=== PATIENT | female | born 1965 | race Caucasian/White ===

== ENCOUNTER 2017-10-22 04:14 | Emergency (ER) | payer SELFPAY ==
[~2017-10-22] VITALS: Ht 165.1 cm; Wt 70.0 kg
[2017-10-22 04:25] VITALS: BP 166/93; PULSE 68; RESP 26; TEMP 98.8; O2SAT 99
[2017-10-22 04:28] VITALS: BP_SYST 166; BP_SYST 168; BP_DIAS 89; BP_DIAS 93; RESP 20
[2017-10-22] MEDS ORDERED: diphenhydrAMINE HCL 50 MG/ML VIAL IV PUSH ONE (04:30)
[2017-10-22] MEDS ORDERED: SODIUM CHLOR 0.9% 1000 ML INJ 1,000 ML IV ONE (04:30)
[2017-10-22] MEDS ORDERED: PROCHLORPERAZINE INJ 10 MG/2 ML VIAL IV PUSH ONE (04:30)
--- NOTE | 2017-10-22 04:38 | PD ---
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 Patient was offered the director speech language but declined. History is a little bit limited. Patient is a little bit dramatic and not forthcoming with much history. Initially complaints were of right arm pain that started yesterday. Patient states that she's been sick for his long as she can remember with arm pain and abdominal pain. She's had multiple surgeries but she cannot say why. Surgical scars on her abdomen or suggestive of appendectomy and hysterectomy. States she has headaches regularly and has been having headache recently, again cannot clarify any duration. She also states that she has severe dizziness and keeps her eyes closed throughout the exam. She states the dizziness and abdominal pain seemed to be the most prominent complaints. No diarrhea. No urinary symptoms. No chest pain. No recent injuries. History Past Medical History Medical History: Denies Significant Hx Tetanus Vaccination: Unknown Influenza Vaccination: No Social History Alcohol Use: No Tobacco Use: No Allergies-Medications (Allergen,Severity, Reaction): Coded Allergies: No Known Drug Allergies (Verified Allergy, Unknown, 10/22/17) Reported Meds & Prescriptions Reported Meds & Active Scripts Active No Active Prescriptions or Reported Medications Review of Systems ROS Limitations: Clinical Condition Physical Exam Narrative GENERAL: 52 year-old woman, lying on the bed, eyes closed, low intensity moaning pretty much continuously SKIN: Focused skin assessment warm/dry. HEAD: Atraumatic. Normocephalic. EYES: Pupils equal and round. No scleral icterus. No injection or drainage. ENT: No nasal bleeding or discharge. Mucous membranes pink and moist. NECK: Appears to move neck freely without evidence of meningismus. CARDIOVASCULAR: Regular rate and rhythm. No murmur appreciated. RESPIRATORY: Lungs are clear to auscultation. No respiratory distress. GASTROINTESTINAL: Abdomen soft, non-tender, nondistended. Hepatic and splenic margins not palpable. MUSCULOSKELETAL: No obvious deformities. No clubbing. No cyanosis. No edema. NEUROLOGICAL: Awake but keeps her eyes closed. She is really not cooperative much exam. I don't see any obvious nystagmus and her EOMs are full. She has no facial asymmetry. Weak effort with motor examination but no obvious focal deficits. She displays dysmetric in both upper extremities but again unclear if this is due to patient's ability to focus on the exam or is a finding. She is able to do [id number] bilaterally without deficits. Sensations intact throughout. PSYCHIATRIC: Appropriate mood and affect; insight and judgment normal. Data Data Last Documented VS Vital Signs Date Time Temp Pulse Resp B/P (MAP) Pulse Ox O2 Delivery O2 Flow Rate FiO2 10/22/17 04:28 82 20 168/89 (115) 75 166/93 (117) 10/22/17 04:25 98.8 99 Orders Orders Iv Access Insert/Monitor (10/22/17 04:27) Complete Blood Count With Diff (10/22/17 04:27) Comprehensive Metabolic Panel (10/22/17 04:27) Lipase (10/22/17 04:27) Sodium Chlor 0.9% 1000 Ml Inj (Ns 1000 M (10/22/17 04:30) Prochlorperazine Inj (Compazine Inj) (10/22/17 04:30) Diphenhydramine Inj (Benadryl Inj) (10/22/17 04:30) Labs Laboratory Tests Test 10/22/17 04:20 White Blood Count 11.8 TH/MM3 Red Blood Count 4.23 MIL/MM3 Hemoglobin 12.4 GM/DL Hematocrit 38.1 % Mean Corpuscular Volume 89.9 FL Mean Corpuscular Hemoglobin 29.4 PG Mean Corpuscular Hemoglobin Concent 32.7 % Red Cell Distribution Width 13.0 % Platelet Count 266 TH/MM3 Mean Platelet Volume 9.2 FL Neutrophils (%) (Auto) 43.4 % Lymphocytes (%) (Auto) 47.6 % Monocytes (%) (Auto) 5.6 % Eosinophils (%) (Auto) 2.4 % Basophils (%) (Auto) 1.0 % Neutrophils # (Auto) 5.1 TH/MM3 Lymphocytes # (Auto) 5.6 TH/MM3 Monocytes # (Auto) 0.7 TH/MM3 Eosinophils # (Auto) 0.3 TH/MM3 Basophils # (Auto) 0.1 TH/MM3 CBC Comment AUTO DIFF Differential Total Cells Counted 100 Neutrophils % (Manual) 39 % Lymphocytes % 55 % Monocytes % 5 % Basophils % 1 % Neutrophils # (Manual) 4.6 TH/MM3 Differential Comment AUTO DIFF CONFIRMED Platelet Estimate NORMAL Platelet Morphology Comment NORMAL Red Cell Morphology Comment NORMAL Blood Urea Nitrogen 23 MG/DL Creatinine 0.92 MG/DL Random Glucose 106 MG/DL Total Protein 7.7 GM/DL Albumin 3.4 GM/DL Calcium Level 9.3 MG/DL Alkaline Phosphatase 131 U/L Aspartate Amino Transf (AST/SGOT) 26 U/L Alanine Aminotransferase (ALT/SGPT) 18 U/L Total Bilirubin 0.2 MG/DL Sodium Level 140 MEQ/L Potassium Level 3.9 MEQ/L Chloride Level 106 MEQ/L Carbon Dioxide Level 26.6 MEQ/L Anion Gap 7 MEQ/L Estimat Glomerular Filtration Rate 64 ML/MIN Lipase 169 U/L [facility] Medical Decision Making Medical Screen Exam Complete: Yes Emergency Medical Condition: Yes Interpretation(s) My review of EKG: Normal sinus rhythm at a rate of 84, normal axis, normal intervals, little bit of artifact in the baseline due to tremulousness. LABS: CBC is unremarkable. CMP is unremarkable. Lipase is normal. Differential Diagnosis Anxiety, migraine, infection, head injury, chest or thoracic problems, other Narrative Course Medical decision making Is a 52 old woman who presents emergency Department with a difficult to put together constellation of symptoms. Seems like dizziness and headache are prominent, migraine seems unlikely. Seasonal be an element of anxiety to her symptoms as well. Patient describes having most of her symptoms pretty much daily and cannot name at time of onset. From talking to family sounds like she has frequent stomach problems but has not been sick in up to see a doctor in some time. We'll check basic labs. She denies any urinary symptoms. I don't think she has any head bleed or stroke or other more severe. Cranial disease. Reassess. Diagnosis Primary Impression: Headache Additional Instructions: Use meclizine as needed for dizziness or nausea. Follow-up with your primary doctor if needed. Return to the emergency department for any worsening dizziness, headache, stomach pain, or any other new or worsening symptoms. Med/Other Pt SpecificInfo: Prescription(s) given Scripts Meclizine (Meclizine) 25 Mg Tab 25 MG PO TID Y for DIZZINESS, #6 TAB 0 Refills Prov: Eliseo Soto MD 10/22/17 Disposition: 01 DISCHARGE HOME Condition: Stable Eliseo Soto MD Oct 22, 2017 04:38
[2017-10-22 04:52] LABS: AUTOMATED NEUTROPHIL # 5.1 TH/MM3 (1.8-7.7); BASOPHIL # 0.1 TH/MM3 (0-0.2); EOSINOPHIL # 0.3 TH/MM3 (0-0.4); EOSINOPHIL % 2.4 % (0.0-4.0); HEMATOCRIT 38.1 % (35.0-46.0); HEMOGLOBIN 12.4 GM/DL (11.6-15.3); LYMPH % 47.6 % (9.0-44.0); LYMPHOCYTE # 5.6 TH/MM3 (1.0-4.8); MEAN CELL VOLUME 89.9 FL (80.0-100.0); MEAN CORPUSCULAR HEMOGLOBIN 29.4 PG (27.0-34.0); MEAN CORPUSCULAR HGB CONC 32.7 % (32.0-36.0); MEAN PLATELET VOLUME 9.2 FL (7.0-11.0); MONO % 5.6 % (0.0-8.0); MONOCYTE # 0.7 TH/MM3 (0-0.9); NEUT % 43.4 % (16.0-70.0); PLATELET COUNT 266 TH/MM3 (150-450); RED BLOOD COUNT 4.23 MIL/MM3 (4.00-5.30); WHITE BLOOD COUNT 11.8 TH/MM3 (4.0-11.0)
[2017-10-22 05:00] LABS: ALKALINE PHOSPHATASE 131 U/L (45-117); TOTAL BILIRUBIN ADULT 0.2 MG/DL (0.2-1.0); TOTAL PROTEIN 7.7 GM/DL (6.4-8.2)
[2017-10-22 05:04] LABS: ALBUMIN 3.4 GM/DL (3.4-5.0); ALT (GPT) 18 U/L (10-53); AST (GOT) 26 U/L (15-37); BICARBONATE 26.6 MEQ/L (21.0-32.0); BLOOD UREA NITROGEN 23 MG/DL (7-18); CALCIUM 9.3 MG/DL (8.5-10.1); CHLORIDE 106 MEQ/L (98-107); CREATININE 0.92 MG/DL (0.50-1.00); GLOMERULAR FILTRATION RATE 64 ML/MIN (>89); GLUCOSE,RANDOM 106 MG/DL (74-106); LIPASE 169 U/L (73-393); SODIUM (NA) 140 MEQ/L (136-145)
[2017-10-22 05:19] LABS: BASOPHILS 1 % (0-2); LYMPHOCYTES 55 % (9-44); MONOCYTES 5 % (0-8); NEUTROPHIL # MANUAL DIFF 4.6 TH/MM3 (1.8-7.7); POLYS (SEG NEUTROPHILS) 39 % (16-70)
[2017-10-22] MEDS ORDERED: MECL-62 PO (05:35)
--- NOTE | 2017-10-22 08:45 | EKG ---
Date Performed: 10/22/2017 Time Performed: 04:18:56 PTAGE: 52 years EKG: Sinus rhythm NORMAL ECG NO PREVIOUS TRACING DOCTOR: Amilcar Gay Interpretating Date/Time 10/22/2017 08:44:29
== END 2017-10-22 05:56 | disposition home or self-care (01) ==
LOC: NEPE 04:14
DX: R51 Headache (principal); M79.601 Pain in right arm; R10.9 Unspecified abdominal pain; R42 Dizziness and giddiness
CPT/HCPCS: 80053; 83690; 85025; 93005; 96361; 96374; 96375; 99284; J0780; J1200; J7030